=== PATIENT | female | born 1985 | race Caucasian/White ===

== ENCOUNTER 2021-06-20 17:44 | Emergency (ER) | payer OTHER ==
[2021-06-20] MEDS ORDERED: DEXAMETHASONE SOD PHOSPHATE 10 MG/1 ML VIAL PO ONE (17:59)
[2021-06-20] MEDS ORDERED: FAMOTIDINE 20 MG TABLET PO ONE (17:59)
[2021-06-20] MEDS ORDERED: AMOXICILLIN 500 MG CAPSULE (FP) PO ONE (17:59)
[2021-06-20] MEDS ORDERED: ACETAMINOPHEN 500 MG TABLET (FP) PO ONE (17:59)
[2021-06-20] MEDS ORDERED: ONDANSETRON *ODT* 4 MG TABLET SL ONE (17:59)
[2021-06-20] MEDS ORDERED: DEXAMETHASONE SOD PHOSPHATE 10 MG/1 ML VIAL ONE (18:05)
[2021-06-20] MEDS ORDERED: AMOXICILLIN 250 MG CAPSULE ONE (18:05)
[2021-06-20] MEDS ORDERED: ACETAMINOPHEN 500 MG TABLET (FP) ONE (18:05)
[2021-06-20] MEDS ORDERED: FAMOTIDINE 20 MG TABLET ONE (18:05)
[2021-06-20] MEDS ORDERED: ONDANSETRON *ODT* 4 MG TABLET ONE (18:06)
[2021-06-20 18:23] VITALS: BP 127/78; PULSE 87; TEMP 99.1; BMI 24.0
[2021-06-21 14:12] LABS: SARS-CoV-2 NAA Not Detected (Not Detected)
== END 2021-06-20 19:03 | disposition home or self-care (01) ==
LOC: FER 17:44
DX: J02.9 Acute pharyngitis, unspecified (principal)
CPT/HCPCS: 87070; 99283-25; C9803; J1100; Q0162; U0003; U0005